=== PATIENT | male | born 1940 | race African-American/Black ===

== ENCOUNTER 2019-05-19 10:24 | Inpatient (IN) | payer MEDICARE ==
[2019-05-19 11:11] LABS: Hemoglobin 13.1 g/dL (14.0-18.0); Mean Corpuscular HGB CONC 32.3 g/dL (32.0-36.0); Mean Corpuscular Hemoglobin 24.3 pg (27.0-31.0); Mean Corpuscular Volume 75.5 fL (78.0-98.0); Mean Platelet Volume 7.5 fL (7.4-10.4); Platelet Count 105 thou/uL (130-400); RBC Distribution Width 14.2 % (11.5-14.5); Red Blood Cell (RBC) Count 5.38 mill/uL (4.70-6.10); White Blood Cell (WBC) Count 10.6 thou/uL (4.8-10.8)
[2019-05-19 11:14] LABS: ALT (SGPT) 10 U/L (8-55); AST (SGOT) 10 U/L (5-34); Albumin 3.8 g/dL (3.4-4.8); Alkaline Phosphatase 74 U/L (40-110); Anion Gap 21 mmol/L (10-20); BUN (Urea Nitrogen) 93 mg/dL (8.4-25.7); Bilirubin, Total 1.3 mg/dL (0.2-1.2); Calc. Creatinine Clearance 0 mL/min (70-130); Calcium 8.2 mg/dL (7.8-10.44); Carbon Dioxide 19 mmol/L (23-31); Chloride 96 mmol/L (98-107); Estimated GFR-MDRD 7; Globulin 3.7 g/dL (2.4-3.5); Glucose 118 mg/dL (83-110); Protein, Total 7.5 g/dL (5.8-8.1); Sodium 131 mmol/L (136-145)
[2019-05-19 11:30] LABS: Band 2 % (5-11); Hypochromia SLIGHT = 6-15 cells (100X) (0-5/hpf); Lymphocytes 3 % (21-51); MDiff Complete? YES; Microcytosis SLIGHT = 6-15 cells (100X) (0-5/hpf); Monocytes 6 % (0-10); Neutrophil 89 % (42-75); Ovalocytes SLIGHT = 2-5 cells (100X) (0-1/hpf); Platelet Morphology Comment Appears Decreased; Polychromasia SLIGHT = 2-3 cells (100X) (0-2/hpf)
[2019-05-19 13:33] LABS: PTT 66.8 SEC (22.9-36.1); Prothrombin Time 76.7 SEC (12.0-14.7)
[2019-05-19 13:42] LABS: INR-International Normal Ratio 9.7
--- NOTE | 2019-05-19 13:43 | CT ---
ABDOMEN CT WITHOUT CONTRAST: PELVIC CT WITHOUT CONTRAST: HISTORY: Constipation. Abdominal pain. COMPARISON: None. CORRELATION: Lumbar spine CT 03/12/2018. FINDINGS: Abdomen CT: Linear opacities and groundglass opacities in lung bases are nonspecific. There does appe ar to be consolidation with air bronchogram in the left lung base which may represent atelectasis, aspiration or pneumonia. HEART: Enlarged. Prosthetic mitral and aortic valves. No significant pericardial effusion. Minimal pe ricardial calcifications. Solid organs: Limited evaluation by the lack of IV contrast. Grossly the liver, spleen, pancreas and adrenal glands have appropriate attenuation There is extensive stranding of the abdominal mesentery likely due to small amounts of mesenteric oleg ma and fluid. No mass, lymphadenopathy or hematoma. There is also a small amount of fluid in the perihepatic and perisplenic region. There is dilatation of atherosclerotic, infrarenal abdominal aorta measuring 2.7 cm anterior-posterio r by 2.9 cm mediolateral. Limited evaluation of the alimentary canal by the lack of oral contrast. No evidence of small bowel o bstruction. Unremarkable ileocecal junction. Appendix is difficult to appreciate. Suggestion of a possible normal caliber appendix in the right lower quadrant. No inflammation of the cecal apex. [place] n is decompressed. Moderate dilatation of the left and right intrarenal collecting systems. Bilateral proximal ureters a re prominent. The mid to distal ureters are decompressed. There is diffuse mild anasarca. CT PELVIS: Enlarged prostate gland causing mass effect upon the floor the urinary bladder. Moderate u rinary bladder distention without obvious mucosal abnormality. There appears to be a small amount of stranding of the presacral fat, with an unremarkable sigmoid colon and rectum. Remote chronic compression fracture at T9, T10, L1, L4 and L5. Schmorl's node along the superior endp late of T11. IMPRESSION: 1. Enlarged prostate gland with associated bladder outlet obstruction. There is resultant moderate di latation of the right and left intrarenal collecting systems as well as proximal ureters. No evidence of an obstructing calculus. 2. Consolidation in the left lower lobe which may represent atelectasis, aspiration or pneumonia. 3. Nonspecific mesenteric edema as well as soft tissue edema. 4. Multiple compression fractures of the distal thoracic and lumbar spine. Interval progression with regards to loss of vertebral body height at L4. Currently, the L4 vertebral body measures 1.2 cm. Grossly, the vertebral body at L4 measured 1.7 cm. Transcribed Date/Time: 05/19/2019 3:32 PM
[2019-05-19 14:33] LABS: Bacteria/HPF None Seen HPF (None Seen); Bilirubin Negative (Negative); Blood, Urine 1+ (Negative); Clarity Clear (Clear); Glucose, Urine (Dipstick) Normal (Negative); Leukocyte Negative Leu/uL (Negative); Nitrite Negative (Negative); Protein, Urine (Dipstick) Negative (Neg-Trace); RBC/HPF 21-50 HPF (0-3); Squamous Epithelial 0-3 HPF (0-3); Urobilinogen Normal mg/dL (Less than 2); WBC/HPF 0-3 HPF (0-3)
[2019-05-19] MEDS ORDERED: Senokot S 8.6-50 MG TAB PO PRN (16:03)
[2019-05-19] MEDS ORDERED: Acetaminophen 325 MG TAB PO PRN (16:03)
--- NOTE | 2019-05-19 17:00 | RAD ---
Portable frontal chest radiograph: 05/19/2019 COMPARISON: 12/19/2013 HISTORY: Abdominal pain and nausea FINDINGS: Dual lead transvenous pacing device again noted. Midline sternotomy wires are present. Ther e is evidence of prior valvuloplasty. No pneumothorax is seen. Linear density in the medial right base suggesting volume loss or scar. There is increased density within the medial left lung base which suggests partial nonspecific consol idation/collapse of the posterior medial left lower lobe. IMPRESSION: Mild increased density in the left lung base as detailed above.
[2019-05-19 18:20] VITALS: BMI 19.7
[2019-05-19] MEDS: Carvedilol 3.125 MG TAB PO SCH (18:21)
[2019-05-19] MEDS ORDERED: FLU VACC TS2019-20(65YR UP)/PF 180 MCG/0.5 ML SYRINGE IM ONE (21:00)
[2019-05-19] MEDS ORDERED: levETIRAcetam 500 MG TAB PO SCH (21:00)
[2019-05-19] MEDS ORDERED: Famotidine 20 MG TAB PO SCH (21:00)
--- NOTE | 2019-05-19 21:48 | HP ---
CHIEF COMPLAINT: Abdominal pain. HISTORY OF PRESENT ILLNESS: This patient is a 78-year-old male, who presented to the emergency department complaining of abdominal pain. The patient reports that he had been doing fine, but on about Sunday, he started feeling some pain in his lower abdomen. He was having some difficulty voiding. He described the pain as "hard." He thought he might have had some constipation, took some medications in order to try to address that, did not get any relief, and subsequently presented to the emergency department. He denies any associated fever. He has had some urinary hesitancy, what he believed to be some urinary retention and some mild dysuria. REVIEW OF SYSTEMS: Again, the patient denied any fevers or chills. He has had no nausea or vomiting. He felt like he has had some constipation symptoms, not eating quite as much over the last couple of days. All other systems reviewed. All pertinent positives and negatives noted in history of present illness. PAST MEDICAL HISTORY: Notable for hypertension, COPD, and GERD. He has a history in the record of hyperlipidemia, although the patient is unaware of that. Also has some documented remote history of seizures. PAST SURGICAL HISTORY: Mitral valve replacement and cataractectomy. FAMILY HISTORY: The patient is unaware of any medical problems in his family and is unaware of how his parents passed. SOCIAL HISTORY: Denies alcohol, tobacco, or drugs. He does have a history of marijuana abuse. He is currently not . He is full code and a friend, Alisia, would be his surrogate decision should that become necessary. ALLERGIES: NONE. CURRENT MEDICATIONS: 1. Lactulose p.r.n. 2. Warfarin 5 mg Sunday through Sunday. 3. MiraLAX p.r.n. 4. Carvedilol 3.125 b.i.d. 5. Lasix 20 mg b.i.d. 6. Oxcarbazepine 300 mg one p.o. q.a.m. and 2 tablets every 1:00 p.m. 7. Keppra XR 500 mg 2 p.o. b.i.d. 8. Cetirizine 10 mg daily. 9. Potassium 10 mEq daily. 10. Folic acid 1 mg daily. 11. Tamsulosin 0.4 mg daily. PHYSICAL EXAMINATION: VITAL SIGNS: Blood pressure 122/69, pulse 65, respirations 18, temperature 98.7, O2 saturation 96% on room air. GENERAL APPEARANCE: Age-appropriate male, in no distress. He is somewhat thin. HEENT: PERRL. No OP lesions. NECK: Supple and symmetric. HEART: Regular rate and rhythm without murmur. There is a prominent S2. LUNGS: Clear to auscultation bilaterally with good chest wall expansion and air exchange. ABDOMEN: Currently soft, nontender, nondistended with positive bowel sounds. No masses. No organomegaly. EXTREMITIES: No cyanosis, clubbing, or edema. PSYCHIATRIC: The patient has normal affect and behavior. NEUROLOGIC: The patient appears to move all extremities spontaneously. Has good strength and cranial nerves are grossly intact. LABORATORY DATA: White count 10.6, hemoglobin 13.1, platelets 105, 89% neutrophils, 2% bands. PT 76.7, INR is 9.7. Sodium 131, potassium 5.0, chloride 96, CO2 is 19, BUN 93, creatinine 8.44, glucose is 118, total bilirubin is 1.3, lipase 24. Urine blood 1+, 21 to 50 red cells, 0 to 3 white cells. DIAGNOSTIC DATA: CT abdomen and pelvis shows enlarged prostate with associated bladder outlet obstruction with resultant moderate dilatation of the right and left infrarenal collecting systems as well as proximal ureters with no evidence of calculi, consolidation of the left lower lobe, which may represent atelectasis, aspiration, or pneumonia. Nonspecific mesenteric edema as well as soft tissue edema. Multiple compression fractures of the distal thoracic and lumbar spine with interval compression with regard to loss of vertebral body height at L4. Currently L4 vertebral body measures 1.2 cm. IMPRESSION AND PLAN: 1. Abdominal pain secondary to bladder distention from benign prostatic hypertrophy with outlet obstruction. In the emergency department, the patient has had a Singer catheter placed. He is decompressing and feeling substantially better. Given the degree of distention, he will need to have a Singer catheter for a period of time at least 1 week. We will consult Urology. We will continue with the tamsulosin. 2. Acute renal failure. The patient's GFR is currently at 7. His last measured value was 2 months ago on March 20 and he was at 60. Typically, he has been slightly higher than that. Certainly, this is likely due to the bladder outlet obstruction. We will consult Nephrology, but I anticipate this will likely improve once the obstruction has now been liberated. 3. Hyponatremia likely due to the outlet obstruction. We will need to continue to monitor as the uremia resolves. 4. Coagulopathy, iatrogenic. The patient is on warfarin. Given his worsening renal function and possible lack of monitoring, the INR has become extremely high. He has no evidence of acute bleeding, although he has some pink tinge to his urine. We will not aggressively reverse this and continue to monitor it daily with warfarin being held. 5. Mild microcytic anemia. We will check iron studies. 6. Thrombocytopenia. The patient has a long history of thrombocytopenia going back to 2011. 7. History of mitral valve replacement. We will continue monitoring his anticoagulation. Continue with the carvedilol and hold on the diuresis for now. Job ID: [id number]
[2019-05-19] MEDS: Sodium Bicarbonate 150 MEQ in Dextrose 5% in Water 1,000 ML IV SCH (23:40)
--- NOTE | 2019-05-20 01:11 | CON ---
DATE OF CONSULTATION: 05/19/2019 CONSULTING PHYSICIAN: Denny Skinner MD REASON FOR CONSULT: Acute kidney injury. REASON FOR ADMISSION: Abdominal pain. HISTORY OF PRESENT ILLNESS: This is a 78-year-old male with history of hypertension, COPD, GERD, and BPH, who came to the hospital with abdominal pain and was found to have obstruction and hydronephrosis, acute kidney injury. Nephrology was consulted. The patient is feeling very well . Denies any nausea or vomiting, chest pain or palpitation. No fever or chills . PAST MEDICAL HISTORY: Positive for hypertension, COPD, GERD, BPH. PAST SURGICAL HISTORY: Mitral valve replacement, cataract surgery. HOME MEDICATIONS: 1. Lactulose. 2. Warfarin. 3. MiraLAX. 4. Carvedilol. 5. Lasix. 6. Oxcarbazepine. 7. Keppra. 8. Cetirizine. 9. Potassium. 10. Folic acid. 11. Tamsulosin. ALLERGIES: NONE. SOCIAL HISTORY: No smoking, alcohol, or illicit drug abuse. FAMILY HISTORY: No history of kidney disease. REVIEW OF SYSTEMS: CONSTITUTIONAL: Negative for weight loss or gain, ability to conduct usual activities. SKIN: Negative for rash, itching. EYES: Negative for double vision, pain. ENT/MOUTH: Negative for nose bleeding, neck stiffness, pain, tenderness. CARDIOVASCULAR: Negative for palpitations, dyspnea on exertion, orthopnea. RESPIRATORY: Negative for shortness of breath, wheezing, cough, hemoptysis, fever or night sweats. GASTROINTESTINAL: Negative for poor appetite, abdominal pain, heartburn, nausea, vomiting, constipation, or diarrhea. GENITOURINARY: Negative for urgency, frequency, dysuria, nocturia. MUSCULOSKELETAL: Negative for pain, swelling. NEUROLOGIC/PSYCHIATRIC: Negative for anxiety, depression. ALLERGY/IMMUNOLOGIC: Negative for skin rash, bleeding tendency. PHYSICAL EXAMINATION: GENERAL: This is a well-built male, in no apparent distress. VITAL SIGNS: Temperature 98.1, pulse 75, respiratory rate 18, blood pressure 103/63. HEENT: Atraumatic, normocephalic. Oral mucosa is moist. NECK: Supple. CVS: S1 and S2 heard. Rate and rhythm regular. RESPIRATORY: Clear. GI: Abdomen is soft. MUSCULOSKELETAL: No tenderness. No edema. DERMATOLOGIC: No skin rash. NEUROLOGIC: Alert and awake. PSYCHIATRIC: Mood and affect normal. LABORATORY DATA: Hemoglobin is 13.1, potassium is 5.0, BUN is 93, creatinine is 8.4, baseline creatinine is around 1.3 done on 03/20/2019. CT abdomen with obstruction. ASSESSMENT AND PLAN: 1. Acute kidney injury, most likely secondary to obstruction. We will monitor. Agree with Urology consult and Singer for now, and we will monitor. 2. Mild hyperkalemia. 3. Acidosis. 4. Edema, controlled. 5. History of hypertension. 6. Anemia, stable. 7. Continue Singer. Follow with Urology. Avoid nephrotoxins. Renally dose the medications. Continue fluids as tolerated. We will follow renal function closely with you. Thank you for the consult. Job ID: [id number]
[2019-05-20] MEDS: Sodium Bicarbonate 150 MEQ in Dextrose 5% in Water 1,000 ML IV SCH ×2 (01:15→16:18)
[2019-05-20 06:18] LABS: Hemoglobin 11.9 g/dL (14.0-18.0); Mean Corpuscular HGB CONC 32.9 g/dL (32.0-36.0); Mean Corpuscular Hemoglobin 25.2 pg (27.0-31.0); Mean Corpuscular Volume 76.5 fL (78.0-98.0); RBC Distribution Width 13.8 % (11.5-14.5); Red Blood Cell (RBC) Count 4.71 mill/uL (4.70-6.10)
[2019-05-20 06:23] LABS: Prothrombin Time 85.6 SEC (12.0-14.7)
[2019-05-20 06:32] LABS: #Eosinphils 0.1 thou/uL (0.0-0.7); #Lymphocytes 0.7 thou/uL (1.20-3.40); #Monocytes 0.7 thou/uL (0.11-0.59); #Neutrophils 5.6 thou/uL (1.40-6.50); %Basophils 0.1 % (0.0-1.0); %Eosinophils 1.1 % (0.0-10.0); %Lymphocytes 9.2 % (21.0-51.0); %Monocytes 10.3 % (0.0-10.0); %Neutrophils 79.4 % (42.0-75.0); MDiff Complete? YES; Mean Platelet Volume 7.7 fL (7.4-10.4); Platelet Count 114 thou/uL (130-400); Platelet Morphology Comment Appears Decreased; Schistocytes SLIGHT = 2-5 cells (100X) (0-1/hpf)
[2019-05-20 06:33] LABS: Anion Gap 14 mmol/L (10-20); BUN (Urea Nitrogen) 76 mg/dL (8.4-25.7); Calc. Creatinine Clearance 11 mL/min (70-130); Calcium 7.8 mg/dL (7.8-10.44); Carbon Dioxide 30 mmol/L (23-31); Chloride 95 mmol/L (98-107); Estimated GFR-MDRD 16; Glucose 107 mg/dL (83-110); Iron 13 ug/dL (65-175); Iron 14 ug/dL (65-175); Iron Binding Capacity, Total 154 mcg/dL (261-462); Iron Binding Capacity, Total 155 mcg/dL (261-462); Potassium 3.5 mmol/L (3.5-5.1); Sodium 135 mmol/L (136-145)
[2019-05-20 06:45] LABS: INR-International Normal Ratio 11.2
[2019-05-20] MEDS ORDERED: Tamsulosin HCl 0.4 MG CAP PO SCH ×2 (09:00)
[2019-05-20] MEDS: Tamsulosin HCl 0.4 MG CAP PO SCH ×2 (09:07→20:43)
[2019-05-20] MEDS: OXcarbazepine 300 MG TAB PO SCH ×2 (09:07→12:44)
[2019-05-20] MEDS: Dutasteride 0.5 MG CAP PO SCH (09:08)
[2019-05-20] MEDS: Carvedilol 3.125 MG TAB PO SCH ×2 (09:10→19:20)
--- NOTE | 2019-05-20 10:13 | PRG ---
DATE OF SERVICE: 05/20/2019 SUBJECTIVE: Patient was seen and examined at bedside and overnight events noted. Patient denies any shortness of breath or chest pain or palpitation. No history of nausea or vomiting or diarrhea or fever or chills or cramps. OBJECTIVE: GENERAL: This is a thin-built male, in no apparent distress. VITAL SIGNS: Temperature 98.3. Heart rate 66. Respiratory rate 18. Blood pressure 93/56. HEENT: Atraumatic, normocephalic. Oral mucosa is moist NECK: Supple. CARDIOVASCULAR: S1, S2 heard. Rate and rhythm regular. RESPIRATORY: Clear to auscultation. GASTROINTESTINAL: Abdomen is soft. MUSCULOSKELETAL: No tenderness. No edema. DERMATOLOGIC: No skin rash. NEUROLOGIC: Alert and awake and oriented X3. No focal neurologic deficits. Moving all the extremities. PSYCHIATRIC: Mood and affect normal. LABORATORY DATA: Potassium 3.5, BUN is 76, and creatinine is 4.4. ASSESSMENT AND PLAN: 1. Acute kidney injury, most likely secondary to obstructive uropathy. Creatinine is much better 4.4 from 8.4, BUN is better. Continue hydration as tolerated. Follow with urologist. 2. Obstructive uropathy. Follow Urology. 3. Hyponatremia, better. 4. Mild hyperkalemia, better. 5. Metabolic acidosis, better. 6. Iron deficiency, recommend iron supplements. 7. Edema, controlled. 8. History of hypertension, stable. Continue hydration. Follow Urology for further plans for obstructive uropathy and we will follow. Avoid nephrotoxins. Job ID: [id number]
[2019-05-20] MEDS ORDERED: ADMIXTURE FEE IV SCH (10:30)
[2019-05-20] MEDS ORDERED: HUM PROTHROMBIN CPLX(PCC)4FACT 1,000 UNIT in Admixture Fee 40 EACH IV SCH (10:30)
[2019-05-20] MEDS ORDERED: [UNRECOGNIZED DRUG - OTHER] IV SCH (10:30)
[2019-05-20] MEDS ORDERED: HUM PROTHROMBIN CPLX IV SCH (10:30)
[2019-05-20] MEDS ORDERED: Phytonadione 10 MG/ML AMP SLOW IVP SCH (10:45)
[2019-05-20] MEDS: Sodium Chloride 0.45% 1,000 ML IV SCH ×3 (11:29→22:24)
[2019-05-20] MEDS ORDERED: Phytonadione 10 MG/ML AMP PO SCH (11:45)
--- NOTE | 2019-05-20 12:16 | CON ---
DATE OF CONSULTATION: 05/20/2019 PRIMARY CARE PHYSICIAN: Dr. Sandoval, a physician in [place]. REASON FOR CONSULT: Urinary retention. HISTORY OF PRESENT ILLNESS: Mr. Mayfield is a 78-year-old male with history of mitral valve replacement, on chronic warfarin, presents with 1-week history of constipation. He relates that he had difficulty having a bowel movement at least for a week, however, passing gas. He has tried MiraLAX and lactulose as an outpatient. He also relates a similar event of constipation and difficulty voiding. Denies prior history of urinary retention. He has difficulty quantifying his voiding symptoms prior to his recent constipation and urinary retention, however , he states that he was not aware that he had obstructive urinary symptoms. As his abdomen was distended and felt tight, he presented to the emergency room. ER records reviewed, a 16-[employer] Singer catheter was placed by the emergency room staff with no significant events. It is documented 300 mL of output. Per family, there was significant output that continuously drained and "filled the bag." It is likely that he had a significant PVR. A CT of the abdomen and pelvis on arrival demonstrated his bladder distended to the level of L4-L5 vertebrae. He states that his abdominal discomfort has resolved with indwelling Singer catheter. He is admitted for coagulopathy as his INR is significantly elevated with history of thrombocytopenia, renal failure. Currently, resting comfortably. Denies history of prostate cancer or prior prostate biopsy. It is unclear, if he has a urologist out of area, as him and his are somewhat of a poor historian regarding his physician/providers. PAST MEDICAL HISTORY: Includes BPH, atrial valve, GERD, history of occasional marijuana use, hypertension, hyperlipidemia, COPD, and remote history of seizures. PAST SURGICAL HISTORY: Mitral valve placement, EGD, and cataract surgery. FAMILY HISTORY: Noncontributory. SOCIAL HISTORY: History of alcohol use, does have history of marijuana abuse. His is at bedside. He is full code. ALLERGIES: NO KNOWN DRUG ALLERGIES. CURRENT MEDICATIONS: Include; 1. Tylenol. 2. Coreg. 3. Pepcid. 4. Trileptal. 5. Senokot. 6. Dextrose. 7. Flomax 0.4 mg one p.o. daily. 8. Lasix 20 mg one p.o. b.i.d. at home. 9. Warfarin 5 mg Sunday through Sunday. 10. Potassium. 11. Folic acid. 12. Keppra 500 mg 2 pills one p.o. b.i.d. PHYSICAL EXAMINATION: VITAL SIGNS: Stable. He is afebrile, appears comfortable, temperature 98, pulse 65, oxygen saturation 96, and blood pressure 92/53. I's and O's; 1416 in, 2075 out. Urine output is yellow, shira, pink tinged. GENERAL: The patient appears to be in no acute distress. HEART: Regular rate. LUNGS: Positive murmur consistent with valve replacement. ABDOMEN: Soft. No rigidity. No rebound. GENITOURINARY: Singer catheter is in place demonstrating pink-tinged shira yellow urine and is secured with StatLock. Testes are descended with no evidence of intratesticular mass. PHUC demonstrates large prostate with no gross nodularity of concern. EXTREMITIES: No cyanosis, clubbing, or edema. NEUROLOGIC: No gross focal deficits are appreciated. PSYCHIATRIC: Appears to be appropriate and intact. PERTINENT LABORATORY DATA: On arrival, white count is 10, hemoglobin 13. Currently, his white count is 7, hemoglobin 11.9, and platelet is 114. INR today is 9.7 on arrival, previously in March, it was 1.9. This morning, it is 11.2. His BUN 76, creatinine on arrival is 8.4. This morning, it is 4.4. Baseline creatinine from 0.9 to 1.4. PSA on March 20, 2019, is 6.5; December 2017, 4.4; September 2017, 6.4; March of 2017 is 5.3; October of 2016, 4.3 to 3.9. In 2016, PSA variable from 4.0 to 4.6. UA is yellow, 20 to 50 rbc's, 0 to 3 wbc's, no epithelials, no known bacteria. Culture was not officially sent. DIAGNOSTIC STUDIES: CT of the abdomen and pelvis without contrast, which I reviewed myself, demonstrates enlarged prostate with bladder outlet obstruction resulting in bilateral hydronephrosis. No obstructing ureteral or bladder calculi. Consolidation of the left lower lobe. Nonspecific mesenteric edema. Multiple compression fracture of the thoracic lumbar spine. Per my review, there is bilateral hydroureteronephrosis to the level of the bladder, which the bladder is distended to the level of L4-L5. Per my review, CT prostate volume is 95 g with component of intravesical median lobe. IMPRESSION AND PLAN: 1. Mr. Mayfield is a 78-year-old male with history of chronic anticoagulation on warfarin due to mechanical heart valve. 2. Current admission due to constipation x1 week, urinary retention, likely coinciding with significantly distended bladder on CT. Per review of records, 300 mL of urine obtained, however, CT likely reflects over 1 L of PVR based on bladder distention. 3. Coagulopathy. 4. Urinary retention. Recommendation, continue indwelling Singer catheter, due to significant bladder distention, he will require a bladder rest for minimum of 1 to 2 weeks to allow decompression and a voiding trial, which can be done as an outpatient. increase his Flomax to b.i.d., Avodart initiated. Urine culture has been obtained. I did speak with the hospitalist, as he has critical coagulopathy, which can precipitate life-threatening bleed as his INR is 11.2. I do recommend reversal to therapeutic level. Hold Keppra as it can cause thrombocytopenia, which has been approved by the Primary Service as well. Nursing staff will contact his PCP to see if he has a urologist out of area that has been following his PSAs. 5. Elevated PSA, which is chronic with unremarkable PHUC as his urinary retention and significant enlarged prostate volume. Given his age, no need for prostate biopsy At this time, as PHUC is grossly unremarkable. Continue indwelling Singer catheter. The patient to be out of bed with assist only as he is high risk for fall and significant bleeding complication due to coagulopathy. Job ID: [id number] [facility]
--- NOTE | 2019-05-20 13:46 | PDOC.HOSPP ---
- Subjective Encounter Date: 05/20/19 Encounter Time: 12:20 Subjective: awake, not in distress no c/o dizziness or chest pain or sob or palp at bedside checked his inr 4 weeks but does not know the results in [place] does his inr checks - Objective Vital Signs & Weight: Vital Signs (12 hours) Temp Pulse Resp BP Pulse Ox 05/20/19 12:00 98.7 F 70 16 83/51 L 96 05/20/19 07:27 98.3 F 66 18 93/56 L 96 05/20/19 06:15 90/50 L 05/20/19 04:00 98.3 F 65 18 92/53 L 96 Weight Weight 123 lb 8 oz I&O: 05/19/19 05/20/19 05/21/19 06:59 06:59 06:59 Intake Total 1416 Output Total 2075 Balance -659 Result Diagrams: 05/20/19 06:00 05/20/19 06:00 Hospitalist ROS - Medication Medications: Active Medications Generic Name Dose Route Start Last Admin Trade Name Rosalesq PRN Reason Stop Dose Admin Carvedilol 3.125 mg 05/19/19 17:00 05/19/19 18:21 Coreg PO 3.125 mg BID-WM GIANFRANCO Administration Dutasteride 0.5 mg 05/20/19 09:00 05/20/19 09:08 Avodart PO 0.5 mg DAILY GIANFRANCO Administration Sodium Chloride 1,000 mls @ 75 mls/hr 05/20/19 07:45 05/20/19 11:29 1/2 Normal Saline IV 1,000 mls .[id number] GIANFRANCO Administration Prothrombin Complex Concent ( 40 mls @ 0 mls/hr 05/20/19 10:30 05/20/19 11:17 Human) 1,047 unit/ IV 05/20/19 17:00 40 mls Miscellaneous Medication ONE GIANFRANCO Administration Protocol As Directed Oxcarbazepine 300 mg 05/20/19 09:00 05/20/19 09:07 Trileptal PO 300 mg DAILY GIANFRANCO Administration Oxcarbazepine 600 mg 05/20/19 13:00 05/20/19 12:44 Trileptal PO 600 mg 1300 GIANFRANCO Administration Phytonadione 10 mg 05/20/19 11:45 05/20/19 12:38 Aquamephyton PO 05/20/19 14:00 10 mg NOW GIANFRANCO Administration Tamsulosin HCl 0.4 mg 05/20/19 09:00 05/20/19 09:07 Flomax PO 0.4 mg BID GIANFRANCO Administration - Exam General Appearance: awake alert Eye: PERRL, anicteric sclera ENT: no oropharyngeal lesions, moist mucosa Neck: supple, no JVD Heart: RRR, no gallops, murmur present Respiratory: no wheezes, no rales Gastrointestinal: soft, non-tender, normal bowel sounds Extremities: no clubbing, no edema Neurological: cranial nerve grossly intact, no focal deficits Psychiatric: normal affect Hosp A/P (1) Bladder outlet obstruction Code(s): N32.0 - BLADDER-NECK OBSTRUCTION Status: Acute (2) BEATA (acute kidney injury) Code(s): N17.9 - ACUTE KIDNEY FAILURE, UNSPECIFIED Status: Acute (3) Coagulopathy Status: Acute (4) Hematuria Code(s): R31.9 - HEMATURIA, UNSPECIFIED Status: Acute (5) H/O mechanical aortic valve replacement Code(s): Z95.2 - PRESENCE OF PROSTHETIC HEART VALVE Status: Chronic (6) COPD (chronic obstructive pulmonary disease) Status: Chronic Qualifiers: COPD type: chronic bronchitis (7) Seizure disorder Code(s): G40.909 - EPILEPSY, UNSP, NOT INTRACTABLE, WITHOUT STATUS EPILEPTICUS Status: Chronic (8) Dyslipidemia Code(s): E78.5 - HYPERLIPIDEMIA, UNSPECIFIED Status: Chronic (9) Compression fracture of L4 vertebra Code(s): S32.040A - WEDGE COMPRESSION FRACTURE OF FOURTH LUMBAR VERTEBRA, INIT Status: Chronic (10) Chronic anemia Code(s): D64.9 - ANEMIA, UNSPECIFIED Status: Chronic - Plan recieved 1000 u kcentra, vit K 10mg po x1 due to hematuria with bladder outlet obstruction and enlarge prostate has jackson in continue coreg small dose, flomax bid and avodart, trileptal sbp around 90's likely from flomax, is asymptomatic, on iv fluids bco3 is normal now, dc bicarb drip echo for current lv function pt is poor historian encourage po intake, ensure 1 can tid
[2019-05-20] MEDS: Famotidine 20 MG TAB PO SCH (20:43)
[2019-05-21 05:52] LABS: INR-International Normal Ratio 1.6; Prothrombin Time 18.5 SEC (12.0-14.7)
[2019-05-21 06:24] LABS: Anion Gap 12 mmol/L (10-20); BUN (Urea Nitrogen) 42 mg/dL (8.4-25.7); Calc. Creatinine Clearance 29 mL/min (70-130); Calcium 7.6 mg/dL (7.8-10.44); Carbon Dioxide 28 mmol/L (23-31); Chloride 101 mmol/L (98-107); Estimated GFR-MDRD 45; Glucose 113 mg/dL (83-110); Sodium 138 mmol/L (136-145)
[2019-05-21] MEDS: OXcarbazepine 300 MG TAB PO SCH ×2 (08:15→14:53)
[2019-05-21] MEDS: Dutasteride 0.5 MG CAP PO SCH (08:15)
[2019-05-21] MEDS: Carvedilol 3.125 MG TAB PO SCH ×2 (08:15→17:32)
[2019-05-21] MEDS: Tamsulosin HCl 0.4 MG CAP PO SCH ×2 (08:15→20:34)
[2019-05-21] MEDS: Sodium Chloride 0.45% 1,000 ML IV SCH ×2 (08:19→14:52)
--- NOTE | 2019-05-21 08:57 | PRG ---
DATE OF SERVICE: 05/21/2019 SUBJECTIVE: The patient resting comfortably, without complaints. at bedside. OBJECTIVE: VITAL SIGNS: Stable. He is afebrile. I's and O's 1400 in 1525 out. Urine output is clear yellow. ABDOMEN: Soft, nontender, nondistended. No CVA tenderness or suprapubic distention. PERTINENT LABORATORY DATA: No recent CBC. Yesterday, white count 7, hemoglobin 11, platelet 114. INR yesterday was 11.2, today is 1.6. He has been reversed with vitamin K. Sodium is 138, potassium 3.5, BUN 42, creatinine 1.7. Admitting creatinine of 8.44. IMPRESSION AND PLAN: 1. Mr. Mayfield is a pleasant 78-year-old male with history of mechanical heart valve, on Coumadin. 2. Current admission due to urinary retention, renal insufficiency secondary to outlet obstruction resulting in bilateral hydronephrosis with indwelling Singer catheter and bladder decompression, his renal function is recovering. 3. Supratherapeutic INR has been reversed. INR appropriately decreased. Continue to monitor. 4. Benign prostatic hypertrophy with retention. Continue Flomax, which I increased to b.i.d., Avodart initiated yesterday. Urine culture pending. No change in disposition, the patient will require an indwelling urethral Singer catheter and he will be discharged with catheter in situ and a voiding trial in few weeks as his bladder was significantly distended. will reach out to his PCP in [place], as he is a poor historian, it is unclear if he has a urologist in [place]. Job ID: [id number] [facility]TD[facility]
[2019-05-21] MEDS: Potassium Chloride 20 MEQ TAB PO SCH ×2 (09:36→20:34)
--- NOTE | 2019-05-21 16:39 | PDOC.HOSPP ---
- Subjective Encounter Date: 05/21/19 Encounter Time: 07:45 Subjective: awake, eating breakfast, at bedside no sob, jackson is draining clear urine this am no abd pain or nausea - Objective Vital Signs & Weight: Vital Signs (12 hours) Temp Pulse Resp BP Pulse Ox 05/21/19 15:37 98.5 F 79 16 102/62 98 05/21/19 11:06 98.4 F 75 20 94/57 L 97 05/21/19 08:00 97.9 F 90 18 131/72 95 05/21/19 06:18 98.6 F 76 16 97/59 L 97 Weight Weight 131 lb 8 oz I&O: 05/20/19 05/21/19 05/22/19 06:59 06:59 06:59 Intake Total 1416 2100 Output Total 3704 8424 443 Balance -559 -325 -400 Result Diagrams: 05/20/19 06:00 05/21/19 05:09 Hospitalist ROS - Medication Medications: Active Medications Generic Name Dose Route Start Last Admin Trade Name Lizbeth PRN Reason Stop Dose Admin Carvedilol 3.125 mg 05/19/19 17:00 05/21/19 08:15 Coreg PO 3.125 mg BID-WM GIANFRANCO Administration Dutasteride 0.5 mg 05/20/19 09:00 05/21/19 08:15 Avodart PO 0.5 mg DAILY GIANFRANCO Administration Famotidine 20 mg 05/20/19 21:00 05/20/19 20:43 Pepcid PO 20 mg Q24HR GIANFRANCO Administration Sodium Chloride 1,000 mls @ 50 mls/hr 05/21/19 08:27 05/21/19 14:52 1/2 Normal Saline IV 1,000 mls .Q20H GIANFRANCO Administration Oxcarbazepine 300 mg 05/20/19 09:00 05/21/19 08:15 Trileptal PO 300 mg DAILY GIANFRANCO Administration Oxcarbazepine 600 mg 05/20/19 13:00 05/21/19 14:53 Trileptal PO 600 mg 1300 GIANFRANCO Administration Potassium Chloride 40 meq 05/21/19 09:00 05/21/19 09:36 K-Dur PO 05/22/19 21:01 40 meq BID GIANFRANCO Administration Sodium Chloride 10 ml 05/21/19 09:00 05/21/19 08:20 Flush - Normal Saline IVF Not Given Q12HR GIANFRANCO Tamsulosin HCl 0.4 mg 05/20/19 09:00 05/21/19 08:15 Flomax PO 0.4 mg BID GIANFRANCO Administration - Exam General Appearance: NAD, awake alert Eye: PERRL, anicteric sclera ENT: no oropharyngeal lesions, moist mucosa Neck: supple, no JVD Heart: no murmur, no gallops Respiratory: no wheezes, no rales Gastrointestinal: soft, non-tender, non-distended, normal bowel sounds Extremities: no cyanosis, no edema Neurological: cranial nerve grossly intact, no focal deficits Psychiatric: normal affect, A&O x 3 Hosp A/P (1) Bladder outlet obstruction Code(s): N32.0 - BLADDER-NECK OBSTRUCTION Status: Resolved Plan: has indwelling jackson (2) BEATA (acute kidney injury) Code(s): N17.9 - ACUTE KIDNEY FAILURE, UNSPECIFIED Status: Acute (3) Coagulopathy Status: Resolved (4) Hematuria Code(s): R31.9 - HEMATURIA, UNSPECIFIED Status: Resolved (5) H/O mechanical aortic valve replacement Code(s): Z95.2 - PRESENCE OF PROSTHETIC HEART VALVE Status: Chronic (6) COPD (chronic obstructive pulmonary disease) Status: Chronic Qualifiers: COPD type: chronic bronchitis (7) Seizure disorder Code(s): G40.909 - EPILEPSY, UNSP, NOT INTRACTABLE, WITHOUT STATUS EPILEPTICUS Status: Chronic (8) Dyslipidemia Code(s): E78.5 - HYPERLIPIDEMIA, UNSPECIFIED Status: Chronic (9) Compression fracture of L4 vertebra Code(s): S32.040A - WEDGE COMPRESSION FRACTURE OF FOURTH LUMBAR VERTEBRA, INIT Status: Chronic (10) Chronic anemia Code(s): D64.9 - ANEMIA, UNSPECIFIED Status: Chronic - Plan recieved 1000 u kcentra, vit K 10mg po x1 due to hematuria with bladder outlet obstruction and enlarged prostate on 05/20/2019 to have jackson for another 2 weeks continue coreg small dose, flomax bid and avodart, trileptal creatinine is down to 1.7 now, gentle iv fluids. echo for current lv function pt is poor historian encourage po intake, ensure 1 can tid restart coumadin from today evening, inr around 1.6 ([facility] mitral valve)
[2019-05-21] MEDS ORDERED: Warfarin Sodium 3 MG TAB PO SCH (17:00)
--- NOTE | 2019-05-21 20:21 | PRG ---
DATE OF SERVICE: 05/21/2019 SUBJECTIVE: Patient was seen and examined at bedside and overnight events noted. Patient denies any shortness of breath or chest pain or palpitation. No history of nausea or vomiting or diarrhea or fever or chills or cramps. OBJECTIVE: GENERAL: This is a well-built male, in no apparent distress. VITAL SIGNS: Temperature 98.5. Heart rate 79. Respiratory rate 16. Blood pressure 102/62. HEENT: Atraumatic, normocephalic. Oral mucosa is moist NECK: Supple. CARDIOVASCULAR: S1, S2 heard. Rate and rhythm regular. RESPIRATORY: Clear to auscultation. GASTROINTESTINAL: Abdomen is soft. MUSCULOSKELETAL: No tenderness. No edema. DERMATOLOGIC: No skin rash. NEUROLOGIC: Alert and awake and oriented X3. No focal neurologic deficits. Moving all the extremities. PSYCHIATRIC: Mood and affect normal. LABORATORY DATA: Potassium 3.0, BUN is 42, and creatinine is 1.7. ASSESSMENT AND PLAN: 1. Acute kidney injury secondary to obstructive uropathy, stable. 2. Obstructive uropathy. 3. Hypokalemia. 4. Hyponatremia. 5. Metabolic acidosis. 6. Edema. 7. History of hypertension. Creatinine is much better. Replace potassium and monitor renal function. We will add potassium 40 mEq p.o. b.i.d. We will reduce IV fluids to 50 mL/h and monitor renal function. Thank you for the consult. Job ID: [id number]
[2019-05-21] MEDS: Famotidine 20 MG TAB PO SCH (20:35)
[2019-05-22] MEDS: Sodium Chloride 0.45% 1,000 ML IV SCH (04:33)
[2019-05-22 06:45] LABS: INR-International Normal Ratio 1.3; Prothrombin Time 16.1 SEC (12.0-14.7)
[2019-05-22 07:08] LABS: Anion Gap 9 mmol/L (10-20); BUN (Urea Nitrogen) 21 mg/dL (8.4-25.7); Calc. Creatinine Clearance 46 mL/min (70-130); Carbon Dioxide 26 mmol/L (23-31); Chloride 105 mmol/L (98-107); Estimated GFR-MDRD 77; Glucose 95 mg/dL (83-110); Potassium 3.8 mmol/L (3.5-5.1); Sodium 136 mmol/L (136-145)
--- NOTE | 2019-05-22 08:02 | PRG ---
DATE OF SERVICE: 05/22/2019 SUBJECTIVE: The patient without complaints, states that he feels restless, desires to be discharged. OBJECTIVE: VITAL SIGNS: Stable. He is afebrile. uo yellow, clear. ABDOMEN: Soft, nontender, and nondistended. : Singer catheter adequately secured, draining as above. EXTREMITIES: No cyanosis, clubbing, or edema. LABORATORY DATA: No recent CBCs since May 20. INR today is 1.3, yesterday 1.6. Creatinine today is back to his baseline to 1.12. Admitting creatinine is 8.44. IMPRESSION AND PLAN: 1. Mr. Mayfield is a 78-year-old male with history of mechanical heart valve on Coumadin, presented with supratherapeutic INR. 2. Urinary retention, likely at significant post-void residual, resulting in bilateral hydronephrosis, acute renal failure, resolved with indwelling Singer catheter. 3. History of constipation. 4. Benign prostatic hyperplasia with urinary retention. Flomax b.i.d., Avodart initiated on this admission. We did contact his PCP in [place]. He does not have a primary urologist of record. known to have elevated prostate specific antigen, likely due to a significant enlarge prostate volume, incomplete emptying. Given his age and unremarkable digital rectal exam, I would recommend observation regarding his elevated prostate specific antigen, and treat his benign prostatic hyperplasia. I did have a long discussion with patient at bedside, that he requires ongoing surveillance to monitor his INR to a therapeutic level prior to discharge would be ideal. The patient states that he would consider staying another day, I encouraged the patient to do so until he is medically cleared to be discharged. Please do not discharge the patient without urologic dispo, as he will require dispo with indwelling Singer catheter for few weeks for a voiding trial as an outpatient. Urine culture reviewed, negative. Recommend case management consult as he will require home health as he is being discharged with indwelling Singer catheter. Job ID: [id number] [facility]
[2019-05-22] MEDS: Potassium Chloride 20 MEQ TAB PO SCH ×2 (09:00→19:48)
[2019-05-22] MEDS: Carvedilol 3.125 MG TAB PO SCH ×2 (09:00→16:53)
[2019-05-22] MEDS: OXcarbazepine 300 MG TAB PO SCH ×2 (09:01→13:26)
[2019-05-22] MEDS: Tamsulosin HCl 0.4 MG CAP PO SCH ×2 (09:01→19:49)
[2019-05-22] MEDS: Dutasteride 0.5 MG CAP PO SCH (09:01)
--- NOTE | 2019-05-22 10:39 | PRG ---
DATE OF SERVICE: SUBJECTIVE: Patient was seen and examined at bedside and overnight events noted. Patient denies any shortness of breath or chest pain or palpitation. No history of nausea or vomiting or diarrhea or fever or chills or cramps. OBJECTIVE: GENERAL: This is a well-built male, in no apparent distress. VITAL SIGNS: Temperature 97.9. Heart rate 74. Respiratory rate 18. Blood pressure 120/75. HEENT: Atraumatic, normocephalic. Oral mucosa is moist NECK: Supple. CARDIOVASCULAR: S1, S2 heard. Rate and rhythm regular. RESPIRATORY: Clear to auscultation. GASTROINTESTINAL: Abdomen is soft. MUSCULOSKELETAL: No tenderness. No edema. DERMATOLOGIC: No skin rash. NEUROLOGIC: Alert and awake and oriented X3. No focal neurologic deficits. Moving all the extremities. PSYCHIATRIC: Mood and affect normal. LABORATORY DATA: Potassium 3.8, BUN is 21, creatinine is 1.1. ASSESSMENT AND PLAN: 1. Acute kidney injury secondary to obstructive uropathy, much better. 2. Obstructive uropathy. 3. Hypokalemia, replaced. 4. Edema, controlled. 5. Metabolic acidosis, stable. 6. History of hypertension. Labs are stable. I will sign off. Please call back with any questions. Job ID: [id number]
--- NOTE | 2019-05-22 12:39 | PDOC.HOSPP ---
- Subjective Encounter Date: 05/22/19 Encounter Time: 08:25 Subjective: no sob or abd pain is eating his breakfast - Objective Vital Signs & Weight: Vital Signs (12 hours) Temp Pulse Resp BP Pulse Ox 05/22/19 08:00 97.9 F 74 18 120/75 100 05/22/19 04:05 100/64 Weight Weight 131 lb 8 oz I&O: 05/21/19 05/22/19 05/23/19 06:59 06:59 06:59 Intake Total 2100 Output Total 2425 400 Balance -325 -400 Result Diagrams: 05/20/19 06:00 05/22/19 06:15 Hospitalist ROS - Medication Medications: Active Medications Generic Name Dose Route Start Last Admin Trade Name Freq PRN Reason Stop Dose Admin Carvedilol 3.125 mg 05/19/19 17:00 05/22/19 09:00 Coreg PO 3.125 mg BID-WM GIANFRANCO Administration Dutasteride 0.5 mg 05/20/19 09:00 05/22/19 09:01 Avodart PO 0.5 mg DAILY GIANFRANCO Administration Famotidine 20 mg 05/20/19 21:00 05/21/19 20:35 Pepcid PO 20 mg Q24HR GIANFRANCO Administration Oxcarbazepine 300 mg 05/20/19 09:00 05/22/19 09:01 Trileptal PO 300 mg DAILY GIANFRANCO Administration Oxcarbazepine 600 mg 05/20/19 13:00 05/21/19 14:53 Trileptal PO 600 mg 1300 GIANFRANCO Administration Potassium Chloride 40 meq 05/21/19 09:00 05/22/19 09:00 K-Dur PO 05/22/19 21:01 40 meq BID GIANFRANCO Administration Sodium Chloride 10 ml 05/21/19 09:00 05/22/19 09:01 Flush - Normal Saline IVF 10 ml Q12HR GIANFRANCO Administration Tamsulosin HCl 0.4 mg 05/20/19 09:00 05/22/19 09:01 Flomax PO 0.4 mg BID GIANFRANCO Administration - Exam General Appearance: NAD, awake alert Eye: PERRL, anicteric sclera ENT: no oropharyngeal lesions, moist mucosa Neck: supple, no JVD Heart: RRR, no murmur Heart - other findings: click+ Respiratory: no wheezes, no rales Gastrointestinal: soft, non-tender, non-distended, normal bowel sounds Extremities: no cyanosis, no edema Neurological: cranial nerve grossly intact, no focal deficits Psychiatric: normal affect Hosp A/P (1) Bladder outlet obstruction Code(s): N32.0 - BLADDER-NECK OBSTRUCTION Status: Resolved (2) BEATA (acute kidney injury) Code(s): N17.9 - ACUTE KIDNEY FAILURE, UNSPECIFIED Status: Acute (3) Coagulopathy Status: Resolved (4) Hematuria Code(s): R31.9 - HEMATURIA, UNSPECIFIED Status: Resolved (5) H/O mechanical aortic valve replacement Code(s): Z95.2 - PRESENCE OF PROSTHETIC HEART VALVE Status: Chronic (6) COPD (chronic obstructive pulmonary disease) Status: Chronic Qualifiers: COPD type: chronic bronchitis (7) Seizure disorder Code(s): G40.909 - EPILEPSY, UNSP, NOT INTRACTABLE, WITHOUT STATUS EPILEPTICUS Status: Chronic (8) Dyslipidemia Code(s): E78.5 - HYPERLIPIDEMIA, UNSPECIFIED Status: Chronic (9) Compression fracture of L4 vertebra Code(s): S32.040A - WEDGE COMPRESSION FRACTURE OF FOURTH LUMBAR VERTEBRA, INIT Status: Chronic (10) Chronic anemia Code(s): D64.9 - ANEMIA, UNSPECIFIED Status: Chronic - Plan recieved 1000 u kcentra, vit K 10mg po x1 due to hematuria with bladder outlet obstruction and enlarged prostate on 05/20/2019 to have jackson for another 2 weeks continue coreg small dose, flomax bid and avodart, trileptal dc iv fluids, renal function almost at baseline echo shows normal lv function, no mention of mech valve? pt is poor historian encourage po intake, ensure 1 can tid increase coumadin ([place] mitral valve) his adjunct phlebotomy instructor in [place] monitors his inr per patient, can draw blood for inr checks on alternate days on dc.
[2019-05-22] MEDS ORDERED: Warfarin Sodium 5 MG TAB PO SCH (17:00)
[2019-05-22] MEDS: Famotidine 20 MG TAB PO SCH (19:48)
[2019-05-23 05:25] LABS: Anion Gap 6 mmol/L (10-20); BUN (Urea Nitrogen) 15 mg/dL (8.4-25.7); Calc. Creatinine Clearance 51 mL/min (70-130); Calcium 8.2 mg/dL (7.8-10.44); Carbon Dioxide 28 mmol/L (23-31); Chloride 107 mmol/L (98-107); Estimated GFR-MDRD 87; Glucose 102 mg/dL (83-110); Potassium 4.2 mmol/L (3.5-5.1); Sodium 137 mmol/L (136-145)
[2019-05-23 07:34] VITALS: BP 99/59; TEMP 97.6
--- NOTE | 2019-05-23 08:26 | PRG ---
DATE OF SERVICE: 05/23/2019 SUBJECTIVE: The patient without complaints, desires to go home. OBJECTIVE: VITAL SIGNS: Stable. He is afebrile. I's and O's; 1600 of urine output, shira clear. ABDOMEN: Soft, nontender, and nondistended. No rigidity. No rebound. PERTINENT LABORATORY DATA: BMP this morning is 1.01. Admitting creatinine is 8.4. Coag profile this morning is pending. IMPRESSION AND PLAN: 1. Mr. Mayfield is a 78-year-old male admitted for acute renal failure secondary to urinary retention with hydronephrosis, resolved after indwelling Singer catheter. 2. History of benign prostatic hyperplasia. Indwelling Singer catheter remains in situ. 3. History of mechanical heart valve, on Coumadin, presented with supratherapeutic INR of 11, currently back on Coumadin with INR of 1.3. The patient is requesting to be discharged home. If he is medically stable, and has close followup with his soaker or internists for monitoring of his INR at a close interval, I feel that it is safe for the patient to be discharged. He is elderly frail, home health has been initiated as they were established. He will be discharged with indwelling Singer catheter. Instruction provided at bedside regarding leg bag, gravity bag use. Nursing to provide further instruction. He is to be discharged with Flomax b.i.d., Avodart. He has appointment in chart with me on June 03 for a voiding trial. Call if any questions or concerns. If remains in-house, we will see. Job ID: [id number] MTDD
[2019-05-23 08:51] LABS: INR-International Normal Ratio 1.3; Prothrombin Time 16.1 SEC (12.0-14.7)
[2019-05-23 08:52] LABS: PTT 38.7 SEC (22.9-36.1)
[2019-05-23] MEDS: Dutasteride 0.5 MG CAP PO SCH (09:26)
[2019-05-23] MEDS: Tamsulosin HCl 0.4 MG CAP PO SCH (09:27)
[2019-05-23] MEDS: Carvedilol 3.125 MG TAB PO SCH (09:27)
[2019-05-23] MEDS: OXcarbazepine 300 MG TAB PO SCH ×2 (09:27→15:06)
--- NOTE | 2019-05-26 13:39 | DIS ---
DATE OF ADMISSION: 05/19/2019 DATE OF DISCHARGE: 05/23/2019 DISCHARGE DISPOSITION: To home. PRIMARY DISCHARGE DIAGNOSES: 1. Obstructive uropathy with acute kidney injury, resolved. 2. Hematuria, resolved. 3. Coagulopathy on arrival, due to Coumadin, resolved. 4. History of mechanical aortic valve. 5. Chronic obstructive pulmonary disease. 6. Seizure disorder. 7. Dyslipidemia. 8. L4 compression fracture, which is chronic. 9. Chronic anemia. PROCEDURES DONE DURING HOSPITALIZATION: Abdominal and pelvic CAT scan done on the day of admission showed enlarged prostate gland with associated bladder outlet obstruction, resulting in moderate dilation of the right and left intrarenal collecting systems as well as proximal ureters. There was no obstructing calculus seen. Multiple compression fractures of the distal thoracic and lumbar spine. Echo with 2D Doppler showed EF of 55% to 60%. There was grade 2/3 diastolic dysfunction, severe mitral annular calcification was present. RV systolic pressures were estimated at 36 mmHg. Moderate pulmonic regurgitation present. Heavily- calcified aortic valve with decreased cusp opening. Moderate aortic valve stenosis. Aortic valve area of 1.3 cm2. Mean gradient 14. Maximum velocity 2.7 mm/sec. Urine culture, no growth. H and H 12 and 36, platelet count 114, MCV is 76. INR was 11.2 on the 15th. Discharge INR is 1.3. Discharge BUN and creatinine 15 and 1.0. Admitting BUN and creatinine were 93 and 8.4 with bicarb of 19. DISCHARGE MEDICATIONS: 1. Coreg 3.125 mg p.o. twice daily. 2. Folic acid 1 mg p.o. daily. 3. Keppra Extended Release 1000 mg twice daily. 4. Oxcarbazepine 300 mg one tab q.a.m. and two tabs at 1 o'clock. 5. MiraLAX 17 g daily. 6. Coumadin 5 mg p.o. daily, Sunday through Sunday. 7. Flomax 0.4 mg p.o. twice daily. 8. Avodart 0.5 mg p.o. daily. ALLERGIES: NO KNOWN DRUG ALLERGIES. INPATIENT CONSULT: 1. Dr. Murcia for Urology. 2. Dr. Hernandez for Nephrology. DISCHARGE PLAN: The patient to follow up with Dr. Murcia on 06/03/2019 at 11:30. He needs to see his primary care physician, Dr. Abhi Chirinos in 1 week BRIEF COURSE DURING HOSPITALIZATION: The patient initially got admitted on the with complaints of abdominal pain. His initial CAT scan revealed bladder outlet obstruction with acute kidney injury. He has had Singer catheter placed. The patient also had elevated INR of 9, which moira up to 11 the next morning. He developed hematuria as well. In view of this, his Coumadin was reversed with 1000 units of Kcentra and 5 mg of vitamin K. The patient has a mechanical valve and needs Coumadin for the same. He was slowly restarted back on Coumadin after 24 hours. His hematuria completely resolved. His renal function is back to baseline with discharge creatinine of 1. The patient has [facility] and will be drawing blood for INR checks, which is monitored by his associate music professor in [place]. He has a Singer catheter in place, and leg bag has been provided to him. He needs to follow up with Dr. Murcia on the for bladder training and possible removal of the Singer catheter. He is hemodynamically stable and will be shortly discharged to home. Please note, I have seen and examined the patient on the day of discharge. Job ID: [id number] MTDD
== END 2019-05-23 14:33 | disposition home health service (06) | DRG 683 ==
LOC: ERS 10:24 → T4-B 17:39
PROVIDERS: ADMIT Internal Medicine; ATTEND Internal Medicine
DX: N17.9 Acute kidney failure, unspecified (principal); N13.8 Other obstructive and reflux uropathy; E87.1 Hypo-osmolality and hyponatremia; D68.9 Coagulation defect, unspecified; E87.2 Acidosis; N40.1 Benign prostatic hyperplasia with lower urinary tract symptoms; N13.30 Unspecified hydronephrosis; J44.9 Chronic obstructive pulmonary disease, unspecified; K21.9 Gastro-esophageal reflux disease without esophagitis; E78.5 Hyperlipidemia, unspecified; D69.6 Thrombocytopenia, unspecified; D50.9 Iron deficiency anemia, unspecified; Z95.2 Presence of prosthetic heart valve; E87.6 Hypokalemia; I10 Essential (primary) hypertension; R33.8 Other retention of urine; E87.5 Hyperkalemia; Z98.49 Cataract extraction status, unspecified eye; R60.9 Edema, unspecified
CPT/HCPCS: 36415; 51702; 71045; 74176; 80048; 80053; 81003; 81015; 82728; 83540; 83550; 83690; 85025; 85610; 85730; 87086; 93306; 96360; 96361; C9132; J3430; J7070

== ENCOUNTER 2019-07-22 11:30 | Outpatient (CLI) | payer MEDICARE ==
--- NOTE | 2019-07-22 13:13 | ULT ---
TESTICULAR ULTRASOUND WITH COLOR AND SPECTRAL DOPPLER IMAGING: HISTORY: Testicular swelling. FINDINGS: The right testis measures 2.8 x 3.5 x 2.5 cm. The left testis measures 2.3 x 3.2 x 2.1 cm. The right epididymis is somewhat enlarged, containing two small, less than 0.5 cm, epididymal cysts. The right epididymis measures approximately 0.9 x 1.4 cm. The left epididymis is also minimally enlarged, measuring 0.9 x 1.5 cm. Small to moderate bilateral h ydroceles. Heterogeneous hypoechogenicity in both testes. No evidence for an intratesticular mass. Abnormal increased blood flow to both right and left epididymides and right and left testes. This cou ld conceivably be related to bilateral epididymitis/orchitis. Minimally dilated left-sided extratesti cular veins, possibly associated varicocele changes. IMPRESSION: 1. Somewhat heterogeneous, slightly hypoechoic bilateral testes with minimally enlarged bilateral epi didymides with increased flow in both the right and left testes and right and left epididymides, poss ibly representing epididymitis and/or orchitis, bilaterally. 2. No evidence for solid intratesticular mass. 3. No evidence for testicular torsion. 4. Probable minimal left sided varicocele changes. 5. Small to moderate bilateral hydroceles. POS: [facility]
== END 2019-07-22 11:31 | disposition home or self-care (01) ==
LOC: SCSULT 11:30
PROVIDERS: ATTEND Urology
DX: N50.89 Other specified disorders of the male genital organs (principal); N43.3 Hydrocele, unspecified; N45.1 Epididymitis
CPT/HCPCS: 76870; 87086; 93976

== ENCOUNTER 2021-03-27 12:25 | Inpatient (IN) | payer MEDICARE ==
[~2021-03-27 12:25] MED LIST: Iopamidol-370 76% 500 ML 1 ML ONE
[2021-03-27] MEDS ORDERED: cefTRIAXone\\ROCEPHIN 2 GM VIAL ONE (13:06)
[2021-03-27 13:16] LABS: Hemoglobin 11.6 g/dL (14.0-18.0); Mean Corpuscular Hemoglobin 25.2 pg (27.0-31.0); Mean Corpuscular Volume 78.7 fL (78.0-98.0); Mean Platelet Volume 9.5 fL (7.4-10.4); Platelet Count 242 thou/uL (130-400); RBC Distribution Width 13.8 % (11.5-14.5); White Blood Cell (WBC) Count 16.1 thou/uL (4.8-10.8)
[2021-03-27 13:34] LABS: Band 2 % (5-11); Hypochromia SLIGHT = 6-15 cells (100X) (0-5/hpf); Lymphocytes 4 % (21-51); MDiff Complete? YES; Monocytes 5 % (0-10); Neutrophil 89 % (42-75); Platelet Morphology Comment Appears Adequate; Polychromasia SLIGHT = 2-3 cells (100X) (0-2/hpf); Target Cells SLIGHT = 2-5 cells (100X) (0-1/hpf)
[2021-03-27 13:51] LABS: Bacteria/HPF 4+ HPF (None Seen); Bilirubin Negative (Negative); Blood, Urine 3+ (Negative); Clarity Extra Turbid (Clear); Glucose, Urine (Dipstick) Normal (Negative); Ketone, Urine Negative (Negative); Leukocyte 500 Leu/uL (Negative); Nitrite Negative (Negative); Protein, Urine (Dipstick) 70 mg/dL (Neg-Trace); RBC/HPF Greater than 50 HPF (0-3); Squamous Epithelial None Seen HPF (0-3); Urobilinogen 3 mg/dL (Less than 2); WBC/HPF Greater than 50 HPF (0-3); pH, Urine 5.5 (5.0-9.0)
[2021-03-27 13:55] LABS: ALT (SGPT) 38 U/L (8-55); AST (SGOT) 46 U/L (5-34); Albumin 3.3 g/dL (3.4-4.8); Alkaline Phosphatase 118 U/L (40-110); Anion Gap 16 mmol/L (10-20); BUN (Urea Nitrogen) 32 mg/dL (8.4-25.7); Bilirubin, Total 1.9 mg/dL (0.2-1.2); Calc. Creatinine Clearance 0 mL/min (70-130); Calcium 8.1 mg/dL (7.8-10.44); Carbon Dioxide 22 mmol/L (23-31); Chloride 96 mmol/L (98-107); Globulin 4.1 g/dL (2.4-3.5); Glucose 118 mg/dL (83-110); Lipase 60 U/L (8-78); Protein, Total 7.4 g/dL (5.8-8.1); Sodium 130 mmol/L (136-145)
[2021-03-27] MEDS ORDERED: Acetaminophen 325 MG TAB ONE (15:08)
[2021-03-27] MEDS ORDERED: metroNIDAZOLE 500 MG/100 ML BAG ONE ×2 (15:21→23:58)
[2021-03-27 15:47] LABS: SARS-CoV-2 NAA Rapid Test Not Detected (NotDetected)
[2021-03-27] MEDS ORDERED: Metoprolol Tartrate 5 MG/5 ML VIAL IVP SCH (15:53)
[2021-03-27] MEDS ORDERED: Metoprolol Tartrate 5 MG/5 ML VIAL ONE (15:55)
[2021-03-27] MEDS ORDERED: Acetaminophen 500 MG TAB PO PRN (16:01)
[2021-03-27] MEDS ORDERED: Piperacillin/Tazobactam 3.375 GM in Sodium Chloride 0.9% 100 ML IVPB SCH ×3 (16:15→20:30)
[2021-03-27 16:47] LABS: Prothrombin Time 96.1 sec (12.0-14.7)
[2021-03-27 17:02] LABS: INR-International Normal Ratio 12.4; PTT 135.8 sec (22.9-36.1)
[2021-03-27 17:07] LABS: Troponin I Less than 0.010 ng/mL (< 0.028)
[2021-03-27] MEDS ORDERED: Phytonadione 10 MG/ML AMP SC SCH (17:45)
[2021-03-27] MEDS: Sodium Chloride 0.9% 1,000 ML IV SCH ×2 (18:01→23:38)
[2021-03-27] MEDS ORDERED: Piperacillin/Tazobactam 3.375 GM VIAL ONE (18:04)
[2021-03-27] MEDS ORDERED: Phytonadione 10 MG/ML AMP ONE (18:04)
[2021-03-27] MEDS ORDERED: Sodium Chloride 0.9% 1,000 ML IV SCH (18:45)
[2021-03-27] MEDS ORDERED: Norepinephrine 8 MG/0.9% NS 250 ML ONE (19:10)
[2021-03-27] MEDS ORDERED: Norepinephrine 8 MG/0.9% NS 250 ML IVPB SCH (19:15)
[2021-03-27 20:56] LABS: Troponin I Less than 0.010 ng/mL (< 0.028)
[2021-03-27] MEDS ORDERED: Magnesium 2 GM/50 ML BAG (IN WATER) ONE (21:18)
[2021-03-27] MEDS ORDERED: Amiodarone 450 MG in Dextrose 5% in Water 250 ML IVPB SCH (21:30)
[2021-03-27] MEDS ORDERED: Amiodarone 150 MG in Dextrose 5% in Water 100 ML IVPB SCH (21:30)
[2021-03-27 22:02] LABS: Magnesium 1.8 mg/dL (1.6-2.6)
[2021-03-27] MEDS ORDERED: Magnesium 2 GM/50 ML 2 GM in Premix Bag 1 BAG IVPB SCH (22:30)
[2021-03-27] MEDS ORDERED: Digoxin 0.5 MG/2 ML AMP SLOW IVP SCH (22:30)
[2021-03-27] MEDS ORDERED: Digoxin 0.5 MG/2 ML AMP ONE (23:23)
[2021-03-28] MEDS ORDERED: metroNIDAZOLE 500 MG/100 ML BAG ONE (00:02)
[2021-03-28] MEDS: metroNIDAZOLE 500 MG in Premix Bag 1 BAG IVPB SCH ×2 (00:05→08:06)
[2021-03-28 00:08] VITALS: BMI 25.1
[2021-03-28] MEDS ORDERED: Diltiazem 125 MG in Sodium Chloride 0.9% 100 ML IVPB SCH (00:45)
[2021-03-28 05:06] LABS: Prothrombin Time 60.8 sec (12.0-14.7)
[2021-03-28 05:19] LABS: Anion Gap 13 mmol/L (10-20); BUN (Urea Nitrogen) 21 mg/dL (8.4-25.7); Calc. Creatinine Clearance 49 mL/min (70-130); Carbon Dioxide 21 mmol/L (23-31); Chloride 105 mmol/L (98-107); Glucose 136 mg/dL (83-110); Magnesium 2.3 mg/dL (1.6-2.6); PTT 142.8 sec (22.9-36.1); Potassium 3.7 mmol/L (3.5-5.1); Sodium 135 mmol/L (136-145)
[2021-03-28 05:24] LABS: Hemoglobin 11.4 g/dL (14.0-18.0); Mean Corpuscular HGB CONC 32.8 g/dL (32.0-36.0); Mean Corpuscular Hemoglobin 26.1 pg (27.0-31.0); Mean Corpuscular Volume 79.4 fL (78.0-98.0); Mean Platelet Volume 9.2 fL (7.4-10.4); Platelet Count 281 thou/uL (130-400); RBC Distribution Width 13.8 % (11.5-14.5); Red Blood Cell (RBC) Count 4.35 mill/uL (4.70-6.10); White Blood Cell (WBC) Count 26.9 thou/uL (4.8-10.8)
[2021-03-28 05:25] LABS: Band 3 % (5-11); Eosinophils 1 % (0-10); Hypochromia SLIGHT = 6-15 cells (100X) (0-5/hpf); MDiff Complete? YES; Neutrophil 96 % (42-75); Platelet Morphology Comment Appears Adequate; Target Cells SLIGHT = 2-5 cells (100X) (0-1/hpf)
[2021-03-28] MEDS ORDERED: Norepinephrine 8 MG/0.9% NS 250 ML ONE ×2 (05:28→18:28)
[2021-03-28] MEDS: Sodium Chloride 0.9% 1,000 ML IV SCH ×4 (08:55→18:11)
[2021-03-28] MEDS ORDERED: Piperacillin/Tazobactam 3.375 GM in Sodium Chloride 0.9% 100 ML IVPB SCH ×2 (09:45→10:30)
[2021-03-28] MEDS ORDERED: Piperacillin/Tazobactam 3.375 GM VIAL ONE ×2 (11:02→15:52)
[2021-03-28] MEDS ORDERED: cefTRIAXone\\ROCEPHIN 500 MG in Sodium Chloride 0.9% 50 ML IVPB SCH (13:00)
[2021-03-28] MEDS ORDERED: Digoxin 0.5 MG/2 ML AMP SLOW IVP SCH ×2 (14:00→16:30)
[2021-03-28] MEDS ORDERED: Digoxin 0.5 MG/2 ML AMP ONE ×2 (14:03→16:37)
[2021-03-28] MEDS: Piperacillin/Tazobactam 3.375 GM in Sodium Chloride 0.9% 100 ML IVPB SCH (15:51)
[2021-03-28] MEDS: Amiodarone 450 MG, Admixture Fee 1 EACH in Dextrose 5% in Water 250 ML IVPB SCH (22:00)
[2021-03-29] MEDS ORDERED: Metoprolol Tartrate 5 MG/5 ML VIAL ONE (00:35)
[2021-03-29] MEDS: Metoprolol Tartrate 5 MG/5 ML VIAL IVP SCH ×2 (00:47→01:00)
[2021-03-29] MEDS: Piperacillin/Tazobactam 3.375 GM in Sodium Chloride 0.9% 100 ML IVPB SCH ×4 (01:00→23:12)
[2021-03-29 01:04] LABS: ALT (SGPT) 19 U/L (8-55); AST (SGOT) 16 U/L (5-34); Albumin 2.2 g/dL (3.4-4.8); Alkaline Phosphatase 78 U/L (40-110); Anion Gap 11 mmol/L (10-20); BUN (Urea Nitrogen) 17 mg/dL (8.4-25.7); Bilirubin, Total 1.8 mg/dL (0.2-1.2); Calc. Creatinine Clearance 59 mL/min (70-130); Calcium 7.6 mg/dL (7.8-10.44); Carbon Dioxide 18 mmol/L (23-31); Chloride 105 mmol/L (98-107); Globulin 3.4 g/dL (2.4-3.5); Glucose 149 mg/dL (83-110); Potassium 3.4 mmol/L (3.5-5.1); Protein, Total 5.6 g/dL (5.8-8.1); Sodium 131 mmol/L (136-145)
[2021-03-29] MEDS ORDERED: Piperacillin/Tazobactam 3.375 GM VIAL ONE ×3 (01:13→14:31)
[2021-03-29] MEDS ORDERED: Sodium Chloride 0.9% 100 ML ONE ×2 (01:13→14:31)
[2021-03-29 01:39] LABS: Band 5 % (5-11); Blister Cells SLIGHT = 2-5 cells (100X) (0-1/hpf); Burr Cells SLIGHT = 2-5 cells (100X) (0-1/hpf); Eosinophils 1 % (0-10); Hemoglobin 10.5 g/dL (14.0-18.0); Lymphocytes 7 % (21-51); MDiff Complete? YES; Mean Corpuscular HGB CONC 33.4 g/dL (32.0-36.0); Mean Corpuscular Hemoglobin 26.6 pg (27.0-31.0); Mean Corpuscular Volume 79.8 fL (78.0-98.0); Mean Platelet Volume 8.9 fL (7.4-10.4); Monocytes 6 % (0-10); Neutrophil 78 % (42-75); Platelet Count 284 thou/uL (130-400); Platelet Morphology Comment Appears Adequate; RBC Distribution Width 13.9 % (11.5-14.5); Reactive Lymphocytes 3 % (0-10); Red Blood Cell (RBC) Count 3.93 mill/uL (4.70-6.10); Schistocytes SLIGHT = 2-5 cells (100X) (0-1/hpf); Target Cells SLIGHT = 2-5 cells (100X) (0-1/hpf); White Blood Cell (WBC) Count 16.1 thou/uL (4.8-10.8)
[2021-03-29 05:47] LABS: Band 1 % (5-11); Eosinophils 1 % (0-10); Hemoglobin 11.1 g/dL (14.0-18.0); Lymphocytes 1 % (21-51); MDiff Complete? YES; Mean Corpuscular HGB CONC 32.9 g/dL (32.0-36.0); Mean Corpuscular Hemoglobin 26.3 pg (27.0-31.0); Mean Corpuscular Volume 79.8 fL (78.0-98.0); Mean Platelet Volume 9.1 fL (7.4-10.4); Monocytes 3 % (0-10); Neutrophil 94 % (42-75); Platelet Count 294 thou/uL (130-400); Platelet Morphology Comment Appears Adequate; RBC Distribution Width 13.9 % (11.5-14.5); RBC Morphology Normal; Red Blood Cell (RBC) Count 4.24 mill/uL (4.70-6.10); Vacuoles SLIGHT; White Blood Cell (WBC) Count 14.8 thou/uL (4.8-10.8)
[2021-03-29 06:02] LABS: Anion Gap 13 mmol/L (10-20); BUN (Urea Nitrogen) 14 mg/dL (8.4-25.7); Calc. Creatinine Clearance 67 mL/min (70-130); Calcium 7.7 mg/dL (7.8-10.44); Carbon Dioxide 15 mmol/L (23-31); Chloride 108 mmol/L (98-107); Glucose 120 mg/dL (83-110); Magnesium 2.1 mg/dL (1.6-2.6); Potassium 3.9 mmol/L (3.5-5.1); Sodium 132 mmol/L (136-145)
[2021-03-29] MEDS ORDERED: GUAIFENESIN SF SOLN 200 MG/10 ML UDCUP PO PRN (07:59)
[2021-03-29] MEDS ORDERED: Bisacodyl 5 MG TAB PO PRN (07:59)
[2021-03-29] MEDS ORDERED: Sodium Chloride 0.65% Nasal 44 ML BOT EA NARE PRN (07:59)
[2021-03-29] MEDS ORDERED: Senokot S 8.6-50 MG TAB PO PRN (07:59)
[2021-03-29] MEDS ORDERED: Loperamide HCl 2 MG CAP PO PRN (07:59)
[2021-03-29] MEDS ORDERED: Artificial Tear Sol 15 ML BOT EA EYE PRN (07:59)
[2021-03-29] MEDS ORDERED: Cepastat Lozenges 1 LOZ PO PRN (07:59)
[2021-03-29] MEDS ORDERED: Metoclopramide HCl 10 MG/2 ML VIAL IVP PRN (07:59)
[2021-03-29] MEDS ORDERED: Hydrocerin (Eucerin) Cream 120 gm Jar TOP PRN (07:59)
[2021-03-29] MEDS ORDERED: Calcium Carbonate 500 MG ChewTAB PO PRN (07:59)
[2021-03-29] MEDS ORDERED: Loratadine 10 MG TAB PO PRN (07:59)
[2021-03-29] MEDS: Sodium Chloride 0.9% 1,000 ML IV SCH ×2 (08:59→14:24)
[2021-03-29] MEDS ORDERED: Digoxin 0.5 MG/2 ML AMP SLOW IVP SCH ×2 (09:45→15:30)
[2021-03-29] MEDS ORDERED: Digoxin 0.5 MG/2 ML AMP ONE (10:39)
[2021-03-29] MEDS: Amiodarone 450 MG, Admixture Fee 1 EACH in Dextrose 5% in Water 250 ML IVPB SCH (21:35)
[2021-03-30] MEDS: Sodium Chloride 0.9% 1,000 ML IV SCH ×3 (03:22→15:52)
[2021-03-30 03:39] LABS: #Eosinphils 0.1 thou/uL (0.0-0.7); #Lymphocytes 0.6 thou/uL (1.20-3.40); #Monocytes 0.6 thou/uL (0.11-0.59); %Eosinophils 1.8 % (0.0-10.0); %Lymphocytes 6.9 % (21.0-51.0); %Monocytes 6.7 % (0.0-10.0); %Neutrophils 84.5 % (42.0-75.0); Hemoglobin 10.6 g/dL (14.0-18.0); Mean Corpuscular HGB CONC 31.9 g/dL (32.0-36.0); Mean Corpuscular Hemoglobin 25.6 pg (27.0-31.0); Mean Corpuscular Volume 80.3 fL (78.0-98.0); Mean Platelet Volume 8.8 fL (7.4-10.4); Platelet Count 303 thou/uL (130-400); RBC Distribution Width 13.8 % (11.5-14.5); Red Blood Cell (RBC) Count 4.12 mill/uL (4.70-6.10); White Blood Cell (WBC) Count 8.3 thou/uL (4.8-10.8)
[2021-03-30 03:52] LABS: INR-International Normal Ratio 1.4; Prothrombin Time 17.2 sec (12.0-14.7)
[2021-03-30 04:05] LABS: ALT (SGPT) 14 U/L (8-55); AST (SGOT) 14 U/L (5-34); Albumin 2.2 g/dL (3.4-4.8); Alkaline Phosphatase 76 U/L (40-110); Anion Gap 10 mmol/L (10-20); BUN (Urea Nitrogen) 12 mg/dL (8.4-25.7); Bilirubin, Total 1.3 mg/dL (0.2-1.2); Calc. Creatinine Clearance 67 mL/min (70-130); Calcium 7.6 mg/dL (7.8-10.44); Carbon Dioxide 21 mmol/L (23-31); Chloride 107 mmol/L (98-107); Digoxin 1.09 ng/mL (0.8-2.0); Globulin 3.2 g/dL (2.4-3.5); Glucose 121 mg/dL (83-110); Potassium 3.3 mmol/L (3.5-5.1); Protein, Total 5.4 g/dL (5.8-8.1); Sodium 135 mmol/L (136-145)
[2021-03-30 04:21] LABS: Phosphorus 1.8 mg/dL (2.3-4.7)
[2021-03-30] MEDS ORDERED: Magnesium 2 GM/50 ML 2 GM in Premix Bag 1 BAG IVPB SCH (04:45)
[2021-03-30] MEDS ORDERED: Potassium Chloride 20 MEQ TAB PO SCH (04:45)
[2021-03-30] MEDS ORDERED: Electrolyte Replacement Protocol FS PRN (04:45)
[2021-03-30] MEDS: PHOS-NAK 1 PKT PACK PO SCH ×2 (06:33→08:36)
[2021-03-30] MEDS: Piperacillin/Tazobactam 3.375 GM in Sodium Chloride 0.9% 100 ML IVPB SCH ×3 (07:32→22:34)
[2021-03-30] MEDS ORDERED: Polyethylene Glycol 3350 17 GM Packet PO PRN (07:44)
[2021-03-30] MEDS ORDERED: hydrALAZINE 20 MG/ML VIAL SLOW IVP PRN (07:44)
[2021-03-30] MEDS ORDERED: HYDROcodone/Acetaminophen 5/325 mg Tablet PO PRN (07:44)
[2021-03-30] MEDS ORDERED: Acetaminophen 500 MG TAB PO PRN (07:46)
[2021-03-30] MEDS ORDERED: Digoxin 0.5 MG/2 ML AMP SLOW IVP SCH (08:00)
[2021-03-30] MEDS: Amiodarone 200 MG TAB PO SCH ×2 (08:32→20:06)
[2021-03-30] MEDS: Folic Acid 1 MG TAB PO SCH (08:32)
[2021-03-30] MEDS: Dutasteride 0.5 MG CAP PO SCH (08:33)
[2021-03-30] MEDS: levETIRAcetam 500 MG TAB PO SCH ×2 (08:33→20:06)
[2021-03-30] MEDS: Tamsulosin HCl 0.4 MG CAP PO SCH (08:33)
[2021-03-30] MEDS: OXcarbazepine 300 MG TAB PO SCH ×2 (13:57→20:06)
[2021-03-30] MEDS: Warfarin Sodium 2 MG TAB PO SCH (15:52)
[2021-03-30] MEDS ORDERED: Warfarin Sodium 1 MG TAB PO SCH (17:00)
[2021-03-31 04:42] LABS: #Eosinphils 0.1 thou/uL (0.0-0.7); #Lymphocytes 0.8 thou/uL (1.20-3.40); #Monocytes 0.3 thou/uL (0.11-0.59); #Neutrophils 4.6 thou/uL (1.40-6.50); %Basophils 0.4 % (0.0-1.0); %Lymphocytes 14.1 % (21.0-51.0); %Monocytes 5.7 % (0.0-10.0); %Neutrophils 77.9 % (42.0-75.0); Hemoglobin 10.3 g/dL (14.0-18.0); Mean Corpuscular HGB CONC 32.7 g/dL (32.0-36.0); Mean Corpuscular Hemoglobin 26.3 pg (27.0-31.0); Mean Corpuscular Volume 80.3 fL (78.0-98.0); Mean Platelet Volume 8.7 fL (7.4-10.4); Platelet Count 312 thou/uL (130-400); Red Blood Cell (RBC) Count 3.92 mill/uL (4.70-6.10); White Blood Cell (WBC) Count 5.9 thou/uL (4.8-10.8)
[2021-03-31 04:50] LABS: INR-International Normal Ratio 1.3; Prothrombin Time 16.2 sec (12.0-14.7)
[2021-03-31 05:05] LABS: Anion Gap 11 mmol/L (10-20); BUN (Urea Nitrogen) 9 mg/dL (8.4-25.7); Calc. Creatinine Clearance 62 mL/min (70-130); Calcium 7.6 mg/dL (7.8-10.44); Carbon Dioxide 21 mmol/L (23-31); Chloride 108 mmol/L (98-107); Glucose 91 mg/dL (83-110); Magnesium 2.2 mg/dL (1.6-2.6); Potassium 3.5 mmol/L (3.5-5.1); Sodium 136 mmol/L (136-145)
[2021-03-31] MEDS: Sodium Chloride 0.9% 1,000 ML IV SCH (06:15)
[2021-03-31] MEDS ORDERED: Potassium Chloride 20 MEQ TAB PO SCH (06:45)
[2021-03-31] MEDS: Piperacillin/Tazobactam 3.375 GM in Sodium Chloride 0.9% 100 ML IVPB SCH (07:03)
[2021-03-31] MEDS: Carvedilol 3.125 MG TAB PO SCH ×2 (08:19→16:17)
[2021-03-31] MEDS: cefTRIAXone\\ROCEPHIN 1 GM in Sodium Chloride 0.9% 100 ML IVPB SCH (08:19)
[2021-03-31] MEDS: PHOS-NAK 1 PKT PACK PO SCH ×2 (08:20→11:54)
[2021-03-31] MEDS: Amiodarone 200 MG TAB PO SCH ×2 (08:20→20:44)
[2021-03-31] MEDS: Enoxaparin Sodium 80 MG/0.8 ML SYRINGE SC SCH ×2 (08:21→20:44)
[2021-03-31] MEDS: Digoxin 0.125 MG TAB PO SCH (08:21)
[2021-03-31] MEDS: Folic Acid 1 MG TAB PO SCH (08:21)
[2021-03-31] MEDS: Dutasteride 0.5 MG CAP PO SCH (08:21)
[2021-03-31] MEDS: OXcarbazepine 300 MG TAB PO SCH ×2 (08:22→20:44)
[2021-03-31] MEDS: Tamsulosin HCl 0.4 MG CAP PO SCH (08:22)
[2021-03-31] MEDS: levETIRAcetam 500 MG TAB PO SCH ×2 (08:22→20:44)
[2021-03-31] MEDS ORDERED: Enoxaparin Sodium 60 MG/0.6 ML SYRINGE SC SCH (09:00)
[2021-03-31] MEDS: Warfarin Sodium 2 MG TAB PO SCH (16:17)
[2021-04-01 04:33] LABS: INR-International Normal Ratio 1.6; Prothrombin Time 18.7 sec (12.0-14.7)
[2021-04-01 04:37] LABS: Anion Gap 8 mmol/L (10-20); BUN (Urea Nitrogen) 9 mg/dL (8.4-25.7); Calc. Creatinine Clearance 62 mL/min (70-130); Calcium 7.9 mg/dL (7.8-10.44); Carbon Dioxide 23 mmol/L (23-31); Chloride 110 mmol/L (98-107); Glucose 93 mg/dL (83-110); Phosphorus 2.4 mg/dL (2.3-4.7); Potassium 3.9 mmol/L (3.5-5.1); Sodium 137 mmol/L (136-145)
[2021-04-01 04:38] LABS: Digoxin 1.25 ng/mL (0.8-2.0)
[2021-04-01] MEDS: cefTRIAXone\\ROCEPHIN 1 GM in Sodium Chloride 0.9% 100 ML IVPB SCH (08:34)
[2021-04-01] MEDS: Digoxin 0.125 MG TAB PO SCH (08:36)
[2021-04-01] MEDS: Enoxaparin Sodium 80 MG/0.8 ML SYRINGE SC SCH ×2 (08:36→22:22)
[2021-04-01] MEDS: Dutasteride 0.5 MG CAP PO SCH (08:36)
[2021-04-01] MEDS: Tamsulosin HCl 0.4 MG CAP PO SCH (08:36)
[2021-04-01] MEDS: Folic Acid 1 MG TAB PO SCH (08:36)
[2021-04-01] MEDS: Carvedilol 3.125 MG TAB PO SCH ×2 (08:37→17:09)
[2021-04-01] MEDS: levETIRAcetam 500 MG TAB PO SCH ×2 (08:37→22:22)
[2021-04-01] MEDS: OXcarbazepine 300 MG TAB PO SCH ×2 (08:37→22:22)
[2021-04-01] MEDS: Amiodarone 200 MG TAB PO SCH ×2 (08:37→10:22)
[2021-04-01] MEDS ORDERED: Furosemide 20 MG TAB PO SCH (09:15)
[2021-04-01] MEDS: Warfarin Sodium 2 MG TAB PO SCH (17:09)
[2021-04-02] MEDS: Digoxin 0.125 MG TAB PO SCH (09:48)
[2021-04-02] MEDS: Folic Acid 1 MG TAB PO SCH (09:48)
[2021-04-02] MEDS: Dutasteride 0.5 MG CAP PO SCH (09:48)
[2021-04-02] MEDS: levETIRAcetam 500 MG TAB PO SCH ×2 (09:48→20:43)
[2021-04-02] MEDS: Tamsulosin HCl 0.4 MG CAP PO SCH (09:48)
[2021-04-02] MEDS: Furosemide 20 MG TAB PO SCH (09:49)
[2021-04-02] MEDS: Amiodarone 200 MG TAB PO SCH ×2 (09:49→20:43)
[2021-04-02] MEDS: Enoxaparin Sodium 80 MG/0.8 ML SYRINGE SC SCH ×2 (09:49→20:42)
[2021-04-02] MEDS: Multivitamin W/ Minerals 1 TAB PO SCH (09:49)
[2021-04-02] MEDS: Ferrous Sulfate 325 MG TAB PO SCH (09:49)
[2021-04-02] MEDS: Carvedilol 3.125 MG TAB PO SCH ×2 (09:49→17:43)
[2021-04-02] MEDS: cefTRIAXone\\ROCEPHIN 1 GM in Sodium Chloride 0.9% 100 ML IVPB SCH (09:56)
[2021-04-02] MEDS: OXcarbazepine 300 MG TAB PO SCH ×2 (10:15→20:44)
[2021-04-02] MEDS: Warfarin Sodium 2 MG TAB PO SCH (17:43)
[2021-04-03 04:46] LABS: INR-International Normal Ratio 1.7; Prothrombin Time 20.3 sec (12.0-14.7)
[2021-04-03] MEDS ORDERED: Warfarin Sodium 2 MG TAB PO SCH (07:30)
[2021-04-03] MEDS: Amiodarone 200 MG TAB PO SCH ×2 (08:20→20:29)
[2021-04-03] MEDS: Ferrous Sulfate 325 MG TAB PO SCH (08:20)
[2021-04-03] MEDS: Carvedilol 3.125 MG TAB PO SCH ×2 (08:20→16:08)
[2021-04-03] MEDS: Digoxin 0.125 MG TAB PO SCH (08:21)
[2021-04-03] MEDS: Furosemide 20 MG TAB PO SCH (08:22)
[2021-04-03] MEDS: levETIRAcetam 500 MG TAB PO SCH ×2 (08:22→20:29)
[2021-04-03] MEDS: Multivitamin W/ Minerals 1 TAB PO SCH (08:22)
[2021-04-03] MEDS: Dutasteride 0.5 MG CAP PO SCH (08:22)
[2021-04-03] MEDS: Folic Acid 1 MG TAB PO SCH (08:22)
[2021-04-03] MEDS: Tamsulosin HCl 0.4 MG CAP PO SCH (08:23)
[2021-04-03] MEDS: Enoxaparin Sodium 80 MG/0.8 ML SYRINGE SC SCH ×2 (08:23→20:28)
[2021-04-03] MEDS: OXcarbazepine 300 MG TAB PO SCH ×2 (08:23→20:29)
[2021-04-03] MEDS: cefTRIAXone\\ROCEPHIN 1 GM in Sodium Chloride 0.9% 100 ML IVPB SCH (08:26)
[2021-04-03] MEDS: Warfarin Sodium 2 MG TAB PO SCH (16:08)
[2021-04-04 00:02] LABS: SARS-CoV-2 PCR by NAA Not Detected (NotDetected)
[2021-04-04 05:05] LABS: Prothrombin Time 22.7 sec (12.0-14.7)
[2021-04-04 08:13] VITALS: BP 131/72; TEMP 97.8
[2021-04-04] MEDS: Carvedilol 3.125 MG TAB PO SCH (08:23)
[2021-04-04] MEDS: cefTRIAXone\\ROCEPHIN 1 GM in Sodium Chloride 0.9% 100 ML IVPB SCH (08:25)
[2021-04-04] MEDS: Ferrous Sulfate 325 MG TAB PO SCH (08:27)
[2021-04-04] MEDS: Amiodarone 200 MG TAB PO SCH (08:28)
[2021-04-04] MEDS: Digoxin 0.125 MG TAB PO SCH (08:29)
[2021-04-04] MEDS: Dutasteride 0.5 MG CAP PO SCH (08:29)
[2021-04-04] MEDS: Enoxaparin Sodium 80 MG/0.8 ML SYRINGE SC SCH (08:30)
[2021-04-04] MEDS: Folic Acid 1 MG TAB PO SCH (08:30)
[2021-04-04] MEDS: levETIRAcetam 500 MG TAB PO SCH (08:31)
[2021-04-04] MEDS: Furosemide 20 MG TAB PO SCH (08:31)
[2021-04-04] MEDS: Tamsulosin HCl 0.4 MG CAP PO SCH (08:33)
[2021-04-04] MEDS: Multivitamin W/ Minerals 1 TAB PO SCH (08:33)
[2021-04-04] MEDS: OXcarbazepine 300 MG TAB PO SCH (08:33)
[2021-04-13] MEDS ORDERED: Amiodarone 200 MG TAB PO SCH (09:00)
[2021-04-27] MEDS ORDERED: Amiodarone 200 MG TAB PO SCH (09:00)
== END 2021-04-04 15:20 | disposition home or self-care (01) | DRG 871 ==
LOC: ERS 12:25 → ERHOLD 16:03 → PACU-TCU 03-29 14:00 → IMCU/EMU 03-29 17:34 → 2NO 03-30 22:07
PROVIDERS: ADMIT Internal Medicine; ATTEND Internal Medicine
PROC: 3E043XZ Introduction of Vasopressor into Central Vein, Percutaneous Approach (ICD-10-PCS; principal; 2021-03-27)
PROC: 06HY33Z Insertion of Infusion Device into Lower Vein, Percutaneous Approach (ICD-10-PCS; 2021-03-27)
DX: A41.51 Sepsis due to Escherichia coli [E. coli] (principal); R65.21 Severe sepsis with septic shock; Z20.822 Contact with and (suspected) exposure to COVID-19; J96.01 Acute respiratory failure with hypoxia; N17.9 Acute kidney failure, unspecified; E87.1 Hypo-osmolality and hyponatremia; M48.56XA Collapsed vertebra, not elsewhere classified, lumbar region, initial encounter for fracture; N13.8 Other obstructive and reflux uropathy; I48.92 Unspecified atrial flutter; N10 Acute pyelonephritis; J44.0 Chronic obstructive pulmonary disease with (acute) lower respiratory infection; D68.9 Coagulation defect, unspecified; I10 Essential (primary) hypertension; E78.5 Hyperlipidemia, unspecified; F17.210 Nicotine dependence, cigarettes, uncomplicated; I48.0 Paroxysmal atrial fibrillation; K21.9 Gastro-esophageal reflux disease without esophagitis; G40.909 Epilepsy, unspecified, not intractable, without status epilepticus; N40.1 Benign prostatic hyperplasia with lower urinary tract symptoms; R31.9 Hematuria, unspecified; F12.10 Cannabis abuse, uncomplicated; D64.9 Anemia, unspecified; E83.39 Other disorders of phosphorus metabolism; E87.6 Hypokalemia; Z95.0 Presence of cardiac pacemaker; Z95.2 Presence of prosthetic heart valve; Z79.899 Other long term (current) drug therapy; Z79.01 Long term (current) use of anticoagulants; Z98.49 Cataract extraction status, unspecified eye
CPT/HCPCS: 36415; 36556; 51702; 71045; 74177; 76705; 78227; 80048; 80053; 80162; 81003; 81015; 83605; 83690; 83735; 84100; 84145; 84484; 85025; 85610; 85730; 87040; 87077; 87086; 87186; 93005; 93306; 96365; 96367; 96375; A9537; J0282; J0696; J1160; J1650; J2543; J3430; J3475; J3490; J7050; J7070; Q9967; U0002; U0003; U0005

== ENCOUNTER 2021-08-30 16:46 | Emergency (ER) | payer OTHER, MEDICARE ==
[2021-08-30 18:09] LABS: Bacteria/HPF None Seen HPF (None Seen); Bilirubin Negative (Negative); Blood, Urine Trace (Negative); Clarity Clear (Clear); Glucose, Urine (Dipstick) Normal (Negative); Ketone, Urine Negative (Negative); Leukocyte Negative Leu/uL (Negative); Nitrite Negative (Negative); Protein, Urine (Dipstick) Negative (Neg-Trace); RBC/HPF 0-3 HPF (0-3); Specific Gravity, Urine 1.007 (1.002-1.036); Squamous Epithelial None Seen HPF (0-3); Urobilinogen Normal mg/dL (Less than 2); WBC/HPF 0-3 HPF (0-3); pH, Urine 7.5 (5.0-9.0)
[2021-08-30 18:10] LABS: #Basophils 0.1 thou/uL (0.0-0.2); #Eosinphils 0.1 thou/uL (0.0-0.7); #Lymphocytes 0.9 thou/uL (1.20-3.40); #Monocytes 0.2 thou/uL (0.11-0.59); #Neutrophils 3.7 thou/uL (1.40-6.50); %Basophils 1.1 % (0.0-1.0); %Eosinophils 1.2 % (0.0-10.0); %Lymphocytes 17.9 % (21.0-51.0); %Monocytes 4.8 % (0.0-10.0); %Neutrophils 75.1 % (42.0-75.0); Hemoglobin 13.7 g/dL (14.0-18.0); Mean Corpuscular HGB CONC 31.7 g/dL (32.0-36.0); Mean Corpuscular Hemoglobin 24.9 pg (27.0-31.0); Mean Corpuscular Volume 78.5 fL (78.0-98.0); RBC Distribution Width 14.4 % (11.5-14.5); Red Blood Cell (RBC) Count 5.52 mill/uL (4.70-6.10); White Blood Cell (WBC) Count 4.9 thou/uL (4.8-10.8)
[2021-08-30 18:22] LABS: INR-International Normal Ratio 2.2; PTT 38.7 sec (22.9-36.1); Prothrombin Time 24.7 sec (12.0-14.7)
[2021-08-30 18:28] LABS: ALT (SGPT) 23 U/L (8-55); AST (SGOT) 30 U/L (5-34); Albumin 3.9 g/dL (3.4-4.8); Alkaline Phosphatase 104 U/L (40-110); Anion Gap 14 mmol/L (10-20); BUN (Urea Nitrogen) 12 mg/dL (8.4-25.7); Bilirubin, Total 0.8 mg/dL (0.2-1.2); Burr Cells SLIGHT = 2-5 cells (100X) (0-1/hpf); CK (CPK) 147 U/L (30-200); Calc. Creatinine Clearance 0 mL/min (70-130); Calcium 9.1 mg/dL (7.8-10.44); Carbon Dioxide 23 mmol/L (23-31); Chloride 101 mmol/L (98-107); Globulin 3.4 g/dL (2.4-3.5); Glucose 80 mg/dL (83-110); Hypochromia SLIGHT = 6-15 cells (100X) (0-5/hpf); MDiff Complete? YES; Magnesium 1.8 mg/dL (1.6-2.6); Mean Platelet Volume 6.2 fL (7.4-10.4); Ovalocytes SLIGHT = 2-5 cells (100X) (0-1/hpf); Platelet Count 124 thou/uL (130-400); Platelet Morphology Comment Appears Decreased; Polychromasia SLIGHT = 2-3 cells (100X) (0-2/hpf); Potassium 4.1 mmol/L (3.5-5.1); Protein, Total 7.3 g/dL (5.8-8.1); Schistocytes SLIGHT = 2-5 cells (100X) (0-1/hpf); Sodium 134 mmol/L (136-145); Target Cells SLIGHT = 2-5 cells (100X) (0-1/hpf)
== END 2021-08-30 20:45 | disposition home or self-care (01) ==
LOC: ERS 16:46
DX: M54.50 Low back pain, unspecified (principal); R55 Syncope and collapse; I44.7 Left bundle-branch block, unspecified; I10 Essential (primary) hypertension; I48.91 Unspecified atrial fibrillation; E78.5 Hyperlipidemia, unspecified; F17.210 Nicotine dependence, cigarettes, uncomplicated; V89.2XXA Person injured in unspecified motor-vehicle accident, traffic, initial encounter; Z79.01 Long term (current) use of anticoagulants; Z79.899 Other long term (current) drug therapy; Z95.0 Presence of cardiac pacemaker
CPT/HCPCS: 36415; 70450; 71045; 72125; 81003; 81015; 82550; 83735; 84484; 85025; 85610; 85730; 93005